=== PATIENT | female | born 1995 | race Caucasian/White ===

== ENCOUNTER 2018-11-06 20:30 | Emergency (ER) | payer SELFPAY ==
[~2018-11-06] VITALS: Ht 157.5 cm; Wt 61.8 kg
[~2018-11-06 20:30] MED LIST: MACROBID 1100 MG/CAP PO; NO HOME MEDICATIONS; PREDNISONE20 MG PO; PRENATAL1 TA2 PO; TAMIFLU75 MG PO
[2018-11-06 20:43] VITALS: TEMP 99.9
[2018-11-06 21:37] LABS: COLLECTION METHOD CLEAN CATCH
[2018-11-06 21:41] LABS: BASO % 0.3 % (0.0-2.0); EOS # 0.1 (0.0-0.7); EOS % 0.8 % (0-4.0); GRAN # 10.4 (1.4-6.5); GRAN % 86.9 % (42.2-75.2); HEMATOCRIT 38.7 % (37.0-47.0); HEMOGLOBIN 13.4 g/dl (12.5-16.0); LYMPH # 0.9 (1.2-3.4); LYMPH % 7.1 % (20.0-51.0); MEAN CELL VOLUME 90 fl (80.0-100.0); MEAN CORPUSCULAR HEMOGLOBIN 31 pg (27.0-31.0); MEAN CORPUSCULAR HGB CONC 35 g/dl (33.0-37.0); MEAN PLATELET VOLUME 10.5 fl (7.4-10.4); MONO # 0.6 (0.1-0.6); MONO % 4.6 % (1.7-9.3); PLATELET COUNT 210 K/mm3 (130-400); RED BLOOD COUNT 4.29 M/mm3 (4.10-5.30); REDCELL DISTRIBUTION WIDTH-CV 12.7 % (11.5-14.5)
[2018-11-06 21:48] LABS: MUCOUS Present /lpf; PH 5 (5-8); SQUAMOUS EPITHELIAL 0-2 /hpf; URINE APPEARANCE Hazy; URINE BACTERIA None Seen /hpf; URINE BILIRUBIN Negative (NEGATIVE); URINE BLOOD Negative (NEGATIVE); URINE COLOR Yellow; URINE GLUCOSE Negative (NEGATIVE); URINE KETONE Negative (NEGATIVE); URINE LEUKOCYTE ESTERASE Negative (NEGATIVE); URINE NITRATE Negative (NEGATIVE); URINE PROTEIN(semi-quant) Negative (NEGATIVE); URINE RBC 0-2 /hpf; URINE UROBILINOGEN Negative (NEGATIVE)
[2018-11-06 21:50] LABS: ALANINE AMINOTRANSFERASE < 6 U/L (9-52); ALBUMIN 4.1 gm/dL (3.5-5.0); ALKALINE PHOSPHATASE 64 U/L (50-136); ANION GAP 11 mmol/L (7-16); AST,SGOT 21 U/L (15-37); BILIRUBIN,TOTAL 0.6 mg/dL (0.0-1.0); BLOOD UREA NITROGEN 20 mg/dL (7-17); CALCIUM 8.9 mg/dL (8.4-10.2); CARBON DIOXIDE 23 mmol/L (22-30); CHLORIDE 102 mmol/L (98-107); CREATININE, serum 0.61 (0.52-1.25); GLUCOSE 102 mg/dL (74-106); LIPASE 56 U/L (23-300); POTASSIUM 3.8 mmol/L (3.4-5.0); SODIUM 136 mmol/L (137-145); TOTAL PROTEIN 7.4 gm/dL (6.4-8.2)
[2018-11-06 23:06] VITALS: BP 122/85; PULSE 78
== END 2018-11-06 23:08 | disposition home or self-care (01) ==
LOC: COL.ER 20:30
PROVIDERS: Emergency Medicine
DX: R11.10 Vomiting, unspecified (principal); R19.7 Diarrhea, unspecified; R10.9 Unspecified abdominal pain; Z90.89 Acquired absence of other organs
CPT/HCPCS: J1885; J2405; J7030

== ENCOUNTER 2019-04-12 08:52 | Emergency (ER) | payer SELFPAY ==
[~2019-04-12] VITALS: Ht 152.4 cm; Wt 65.9 kg
[2019-04-12 08:57] VITALS: BP 139/83
[2019-04-12 09:39] LABS: STREP SCREEN NEGATIVE
[2019-04-12 09:40] LABS: ALBUMIN 4.5 gm/dL (3.5-5.0); BILIRUBIN,TOTAL 0.4 mg/dL (0.0-1.0); C-REACTIVE PROTEIN 2.1 mg/dL (0.0-0.9); CALCIUM 9.1 mg/dL (8.4-10.2); CREATININE, serum 0.51 (0.52-1.25); POTASSIUM 4.1 mmol/L (3.4-5.0); TOTAL PROTEIN 8.2 gm/dL (6.4-8.2)
[2019-04-12 09:50] LABS: COLLECTION METHOD CLEAN CATCH
[2019-04-12 09:55] LABS: MUCOUS Present /lpf; PH 7 (5-8); URINE APPEARANCE Clear; URINE BACTERIA None Seen /hpf; URINE BILIRUBIN Negative (NEGATIVE); URINE BLOOD Negative (NEGATIVE); URINE COLOR Straw; URINE GLUCOSE Negative (NEGATIVE); URINE KETONE Negative (NEGATIVE); URINE LEUKOCYTE ESTERASE Negative (NEGATIVE); URINE NITRATE Negative (NEGATIVE); URINE PROTEIN(semi-quant) Negative (NEGATIVE); URINE UROBILINOGEN Negative (NEGATIVE)
[2019-04-12 10:24] LABS: HEMATOCRIT 39.5 % (37.0-47.0); HEMOGLOBIN 13.5 g/dl (12.5-16.0); MEAN CELL VOLUME 89 fl (80.0-100.0); MEAN CORPUSCULAR HEMOGLOBIN 30 pg (27.0-31.0); MEAN CORPUSCULAR HGB CONC 34 g/dl (33.0-37.0); MEAN PLATELET VOLUME 10.8 fl (7.4-10.4); PLATELET COUNT 227 K/mm3 (130-400); RED BLOOD COUNT 4.46 M/mm3 (4.10-5.30); REDCELL DISTRIBUTION WIDTH-CV 12.8 % (11.5-14.5)
[2019-04-12] MEDS ORDERED: ZOFRAN ODT4 MG PO (10:35)
[2019-04-12 10:57] VITALS: PULSE 67; TEMP 100.3
== END 2019-04-12 10:58 | disposition home or self-care (01) ==
LOC: COL.ER 08:52
PROVIDERS: Physician Assistant
DX: B34.9 Viral infection, unspecified (principal); J45.909 Unspecified asthma, uncomplicated; Z90.49 Acquired absence of other specified parts of digestive tract; Z87.891 Personal history of nicotine dependence
CPT/HCPCS: J2405; J7030

== ENCOUNTER 2019-07-18 18:31 | Emergency (ER) | payer SELFPAY ==
[~2019-07-18] VITALS: Ht 162.6 cm; Wt 65.9 kg
[~2019-07-18 18:31] MED LIST changes: +ZOFRAN ODT4 MG PO
[2019-07-18 18:41] VITALS: BP 131/77
[2019-07-18] MEDS ORDERED: TAMIFLU 75MG75 MG PO (21:03)
[2019-07-18] MEDS ORDERED: ZOFRAN ODT4 MG PO (21:03)
[2019-07-18 21:22] VITALS: PULSE 76; TEMP 98.2
== END 2019-07-18 21:24 | disposition home or self-care (01) ==
LOC: COL.ER 18:31
DX: J11.1 Influenza due to unidentified influenza virus with other respiratory manifestations (principal); J45.909 Unspecified asthma, uncomplicated; Z90.49 Acquired absence of other specified parts of digestive tract; Z87.891 Personal history of nicotine dependence